=== PATIENT | female | born 1975 ===

== ENCOUNTER 2018-07-30 16:06 | Emergency (ER) | payer OTHER ==
[2018-07-30 16:35] VITALS: BP 131/78; PULSE 82; RESP 16; TEMP 98.3; O2SAT 99
--- NOTE | 2018-07-30 18:07 | ED PDOC ---
HPI: Back Chief Complaint (Provider): Back Pain History Per: Patient History/Exam Limitations: no limitations Onset/Duration Of Symptoms: Days Quality Of Discomfort: "Pain" Additional Complaint(s): 42 year old female presents to the ER for an evaluation of back pain. Patient states she has a history of back pain and no history of injuries or trauma. She took Tylenol without any relief. Patient denies fever or abdominal pain. PMD: No Family Provider <Tatyana Mcconnell - Last Filed: 07/30/18 23:20> <Nick Maynard - Last Filed: 08/01/18 14:44> Time Seen by Provider: 07/30/18 16:40 Chief Complaint (Nursing): Back Pain Past Medical History Reviewed: Historical Data, Nursing Documentation, Vital Signs Vital Signs: Last Vital Signs Temp 98.3 F 07/30/18 16:32 Pulse 82 07/30/18 16:32 Resp 16 07/30/18 16:32 BP 131/78 07/30/18 16:32 Pulse Ox 99 07/30/18 16:32 - Medical History PMH: No Chronic Diseases - Family History Family History: States: Unknown Family Hx <Tatyana Mccnonell - Last Filed: 07/30/18 23:20> Vital Signs: Last Vital Signs Temp 98.3 F 07/30/18 16:32 Pulse 82 07/30/18 16:32 Resp 16 07/30/18 16:32 BP 131/78 07/30/18 16:32 Pulse Ox 99 07/30/18 23:21 <Nick Maynard - Last Filed: 08/01/18 14:44> - Home Medications Home Medications: Ambulatory Orders Medication Instructions Recorded RX: Ibuprofen [Motrin Tab] 600 mg PO Q8 #12 tab 07/30/18 - Allergies Allergies/Adverse Reactions: Allergies Allergy/AdvReac Type Severity Reaction Status Date / Time No Known Allergies Allergy Verified 07/30/18 16:32 Review of Systems ROS Statement: Except As Marked, All Systems Reviewed And Found Negative Constitutional: Negative for: Fever Gastrointestinal: Negative for: Abdominal Pain Musculoskeletal: Positive for: Back Pain Psych: Negative for: Suicidal ideation (homicidal ideation) <Tatyana Mcconnell - Last Filed: 07/30/18 23:20> Physical Exam - Reviewed Nursing Documentation Reviewed: Yes Vital Signs Reviewed: Yes - Physical Exam Appears: Positive for: Well, Non-toxic, No Acute Distress Head Exam: Positive for: ATRAUMATIC, NORMAL INSPECTION, NORMOCEPHALIC Skin: Positive for: Normal Color, Warm, Dry. Negative for: Rash Eye Exam: Positive for: Normal appearance Back: Positive for: Other (no midline tenderness). Negative for: Normal Inspection (paraspinal tenderness) Extremity: Positive for: Normal ROM, Other (motor strength of upper and lower extremities: 5/5) Neurologic/Psych: Positive for: Alert, Oriented (x3). Negative for: Motor/Sensory Deficits <Tatyana Mcconnell - Last Filed: 07/30/18 23:20> - ECG O2 Sat by Pulse Oximetry: 99 (RA) Pulse Ox Interpretation: Normal <Tatyana Mcconnell - Last Filed: 07/30/18 23:20> Medical Decision Making Medical Decision Making: Time: 1640 Pt. well appearing, ambulating with steady gait, neuro intact. Scribe Attestation: Documented by Nghia Montez, acting as a scribe for Tatyana Mcconnell PA-C. Provider Scribe Attestation: All medical record entries made by the Scribe were at my direction and personally dictated by me. I have reviewed the chart and agree that the record accurately reflects my personal performance of the history, physical exam, medical decision making, and the department course for this patient. I have also personally directed, reviewed, and agree with the discharge instructions and disposition. <Tatyana Mcconnell - Last Filed: 07/30/18 23:20> Disposition - Patient ED Disposition Is Patient to be Admitted: No - Disposition Disposition: Routine/Home Disposition Time: 19:54 <Tatyana Mcconnell - Last Filed: 10/03/18 23:20> <Nick Maynard - Last Filed: 08/01/18 14:44> - Clinical Impression Clinical Impression: Back pain - Disposition Referrals: Cristal Cooley MD [Staff Provider] - Condition: IMPROVED Prescriptions: RX: Ibuprofen [Motrin Tab] 600 mg PO Q8 #12 tab Instructions: Upper Back Pain (DC) Forms: [facility] (Nepali) Print Language: CUBAN Addendum Addendum: 08/01/18 14:44 Reviewed Pa chart and agree. <Nick Maynard - Last Filed: 08/01/18 14:44>
== END 2018-07-30 19:57 | disposition home or self-care (01) ==
LOC: H.ER 16:06
DX: M54.9 Dorsalgia, unspecified (principal)